=== PATIENT | male | born 1980 | race African-American/Black ===

== ENCOUNTER 2018-06-17 19:58 | Emergency (ER) | payer MEDICAID ==
[2018-06-17] MEDS ORDERED: LORAZEPAM 0.5 MG TABLET PO ONE (20:18)
--- NOTE | 2018-06-17 20:21 | Emergency Department Record ---
History of Present Illness - General Chief Complaint: Dizziness Stated Complaint: LIGHT HEADED,HIGH BP Time Seen by Provider: 06/17/18 20:14 Source: Patient Mode of Arrival: Ambulatory Limitations: No limitations - History of Present Illness Initial Comments: The patient is here due to becoming mildly lightheaded at work a few hours ago. It did improved and did resolve but he took his BP and it was 170/110 so his wanted him checked out. Presently he feels back to normal and denies any SALDIVAR , visual changes, Cp, SOB, MICHAEL, or nausea. He has a long hx of HTN and has been taking his medicines. MD Complaint: Lightheadedness Onset/Timin -: Hour(s) History of Same: No History of Trauma: No Improves With: Nothing Worsens With: Exertion - Related Data Home Medications Medication Instructions Recorded Confirmed Last Taken Quetiapine Fumarate [Seroquel Xr] 400 mg PO DAILY 06/17/18 06/17/18 Unknown Allergies Allergy/AdvReac Type Severity Reaction Status Date / Time No Known Drug Allergies Allergy Unverified 04/18/18 08:30 Travel Screening - Travel/Exposure Within Last 30 Days Have you traveled within the last 30 days?: No Review of Systems Constitutional: Denies: Chills, Fever Eyes: Denies: Eye discharge ENT: Denies: Congestion Respiratory: Denies: Cough, Dyspnea Past Medical History - SOCIAL HISTORY Smoking Status: Current every day smoker Alcohol Use: Heavy Alcohol Use Comment: 2 drinks a day Drug Use: None - RESPIRATORY Hx Respiratory Disorders: No - CARDIOVASCULAR Hx Cardio Disorders: Yes Hx Hypertension: Yes - NEURO Hx Neuro Disorders: No - GI Hx GI Disorders: No - Hx Genitourinary Disorders: No - ENDOCRINE Hx Endocrine Disorders: Yes Hx Thyroid Disease: Yes (hypo) - MUSCULOSKELETAL Hx Musculoskeletal Disorders: No - PSYCH Hx Psych Problems: Yes Hx Behavior Problems: Yes Hx Depression: Yes Comment:: schizophrenia - HEMATOLOGY/ONCOLOGY Hx Hematology/Oncology Disorders: No Family Medical History Any Significant Family History?: No Physical Exam - General General Appearance: Alert, Oriented x3, Cooperative, No acute distress - Head Head exam: Atraumatic, Normocephalic, Normal inspection - Eye Eye exam: Normal appearance, PERRL, EOMI - ENT ENT exam: Normal exam, Mucous membranes moist, Normal external ear exam, Normal orophraynx Throat exam: Normal inspection. negative: Tonsillar erythema, Tonsillar exudate - Neck Neck exam: Normal inspection, Full ROM. negative: Tenderness - Respiratory Respiratory exam: Normal lung sounds bilaterally. negative: Respiratory distress - Cardiovascular Cardiovascular Exam: Regular rate, Normal rhythm, Normal heart sounds - GI/Abdominal GI/Abdominal exam: Soft, Normal bowel sounds. negative: Tenderness - Extremities Extremities exam: Normal inspection, Full ROM, Normal capillary refill. negative: Tenderness - Neurological Neurological exam: Alert, Normal gait, Oriented X3, Other (Neg Drift and Rhomberg.). negative: Abnormal gait, Motor sensory deficit - Psychiatric Psychiatric exam: negative: Anxious, Depressed, Flat affect Course Vital Signs 06/17/18 20:03 Temperature 99.3 F Pulse Rate [ 78 Pulse Ox Probe] Respiratory 20 Rate Blood Pressure 151/94 [Left Arm] Pulse Ox 97 - Reevaluation(s) Reevaluation #1: The patient is doing very well at this time. Presently he is texting on his phone. He states he feels back to normal and denies any pain, discomfort, visual changes, or lightheadedness. I did discuss the fact that his BP is still mildly elevated but that is normal for him. He is to see his PCP this next week for recheck and to return to the ER for any problems or pain. 06/17/18 20:57 Medical Decision Making - Data Complexity MDM Data: Labs Ordered and/or Reviewed - Lab Data Result diagrams: 06/17/18 20:23 06/17/18 20:23 Disposition Disposition: Discharge Clinical Impression: Hypertension Qualifiers: Hypertension type: unspecified Qualified Code(s): I10 - Essential (primary) hypertension Disposition: Home, Self-Care Condition: (2) Stable Instructions: Dizziness (ED) Additional Instructions: Please continue your regular medicines and see your family doctor for recheck this next week. Return to the ER for any worsening symptoms. Forms: Patient Portal Access Time of Disposition: 20:59 Quality - Quality Measures Quality Measures: N/A - Blood Pressure Screening View Details: Yes Does Patient Have Any of the Following: Active Dx of HTN Blood Pressure Classification: Hypertensive Reading Systolic Measurement: 159 Diastolic Measurement: 100 Screening for High Blood Pressure: Patient Exclusion, Hx of HTN [[id number]]
[2018-06-17 20:28] LABS: BASO % 0.3 % (0-6); EOS % 1.5 % (0-6); GRAN % 53.1 % (47-80); HEMATOCRIT 40.9 % (42.0-52.0); HEMOGLOBIN 13.3 gm/dl (14.0-18.0); LYMPH % 36.6 % (16-45); MEAN CELL VOLUME 86.1 fl (81-97); MEAN CORPUSCULAR HGB CONC 32.5 g/dl (32-36); MEAN PLATELET VOLUME 9.2 fl (7.4-10.4); MONO % 8.5 % (0-9); PLATELET COUNT 232 K/uL (130-400); RED BLOOD COUNT 4.75 M/uL (4.40-5.70); RED CELL DISTRIBUTION WIDTH 14.6 % (11.5-14.5); WHITE BLOOD COUNT W/O DIFF 7.3 K/uL (4.2-12.2)
[2018-06-17 20:41] LABS: BLOOD UREA NITROGEN 8 mg/dL (6-20); CREATININE 0.9 mg/dL (0.7-1.2); EST GLOMERULAR FILTRATION RATE > 60 mL/min
[2018-06-17 20:44] LABS: GLUCOSE,RANDOM 92 mg/dL (74-109)
[2018-06-17 20:47] LABS: ALB/GLOB RATIO 1.4 (1.1-1.8); ALBUMIN 4.6 g/dL (4.0-5.0); ALKALINE PHOSPHATASE 64 U/L (40-129); ALT/SGPT 51 U/L (<41); AST/SGOT 79 U/L (10.0-50.0)
== END 2018-06-17 21:23 | disposition home or self-care (01) ==
LOC: ER 19:58
DX: I10 Essential (primary) hypertension (principal); R42 Dizziness and giddiness; F17.210 Nicotine dependence, cigarettes, uncomplicated
CPT/HCPCS: 80053; 85025; 99283